=== PATIENT | male | born 1955 | race Two or more races ===

== ENCOUNTER 2018-09-02 10:37 | Emergency (ER) | payer BC ==
[~2018-09-02] VITALS: Ht 167.6 cm; Wt 74.8 kg
--- NOTE | 2018-09-02 10:56 | NUR ---
PT AMBULATORY TO ER BED 11 C/O 2 WEEKS OF LUQ ABDOMINAL PAIN. PT DENIES N/V/D. STATES HX OF DIVERTICULITIS 2 YEARS AGO. WAS AT URGENT CARE EARLIER AND WAS ADVISED TO GO STRAIGHT TO ED. GOWNED AND PLACED ON MONITOR. VSS. AWAITING MD TAVARES.
--- NOTE | 2018-09-02 11:06 | NUR ---
IV LINE STARTED BLOOD DRAWN AND SENT TO LAB.
--- NOTE | 2018-09-02 11:29 | NUR ---
DR I[place]AND AT BEDSIDE FOR EVAL.
[2018-09-02] MEDS ORDERED: IBUPROFEN 600 MG TABLET PO ONE ×2 (11:30→11:36)
[2018-09-02] MEDS ORDERED: IV NS 0.9% 500 ML BAG IV ONE (11:30)
[2018-09-02] MEDS ORDERED: KETOROLAC TROMETHAMINE INJ 30 MG/ML VIAL IV ONE (11:30)
[2018-09-02 11:35] LABS: BASOPHILS # (AUTO) 0.1 /CMM (0.0-0.2); BASOPHILS % (AUTO) 0.8 % (0.0-2.0); EOSINOPHILS % (AUTO) 4.3 % (0.0-6.0); HEMATOCRIT 51 % (39-51); LYMPHOCYTES # (AUTO) 3.2 /CMM (0.8-4.8); LYMPHOCYTES % (AUTO) 40.1 % (20.0-44.0); MEAN CORPUSCULAR HGB CONC 33 g/dl (31.0-36.0); MEAN CORPUSCULAR VOLUME 95 fL (80-96); MONOCYTES # (AUTO) 0.6 /CMM (0.1-1.30); MONOCYTES % (AUTO) 7.3 % (2.0-12.0); NEUTROPHILS # (AUTO) 3.8 /CMM (1.8-8.9); NEUTROPHILS % (AUTO) 47.5 % (43.0-81.0); PLATELET COUNT (AUTO) 234 /CMM (150-450); RED BLOOD CELL COUNT(AUTO) 5.34 MIL/uL (4.5-6.0)
[2018-09-02 11:40] LABS: CALCIUM, SERUM 9.4 mg/dL (8.5-10.1); CARBON DIOXIDE 27 mmol/L (21-32); CHLORIDE 106 mmol/L (98-107); CREATININE 0.8 mg/dL (0.6-1.3); GLUCOSE 109 mg/dL (74-106); POTASSIUM 4.3 mmol/L (3.5-5.1); SODIUM SERUM 141 mmol/L (136-145); UREA NITROGEN, BLOOD 14 mg/dL (7-18)
[2018-09-02 11:45] LABS: ALANINE AMINOTRANSFERASE 25 U/L (12-78); ALBUMIN 4.1 g/dL (3.4-5.0); ALKALINE PHOSPHATASE 74 U/L (46-116); ASPARTATE AMINOTRANSFERASE 18 U/L (15-37); BILIRUBIN,DIRECT 0.1 mg/dL (0.0-0.2); BILIRUBIN,TOTAL 0.4 mg/dL (0.2-1.0); LIPASE 72 U/L (73-393); TOTAL PROTEIN, SERUM 7.7 g/dL (6.4-8.2)
--- NOTE | 2018-09-02 14:07 | NUR ---
Patient discharged to home in stable condition. Written and verbal after care instructions given. Patient verbalizes understanding of instruction.
[2018-09-02 14:09] VITALS: BP 139/88
== END 2018-09-02 14:10 | disposition home or self-care (01) ==
LOC: ER 10:41
DX: K57.90 Diverticulosis of intestine, part unspecified, without perforation or abscess without bleeding (principal); Z88.8 Allergy status to other drugs, medicaments and biological substances
CPT/HCPCS: 36415; 71045; 74176; 80048; 80076; 83690; 84484; 85025; 93005; 99284; J7040